=== PATIENT | female | born 1995 | race Caucasian/White ===

== ENCOUNTER 2016-05-10 18:05 | Emergency (ER) | payer SELFPAY ==
[~2016-05-10] VITALS: Ht 157.5 cm; Wt 54.0 kg
[2016-05-10 18:41] LABS: KETONES,URINE 15 (NEGATIVE); LEUKOCYTE ESTERASE ,URINE Small (NEGATIVE)
[2016-05-10 18:42] LABS: PREGNANCY TEST URINE QUAL NEGATIVE (NEGATIVE)
[2016-05-10 18:43] LABS: ADD UA MICROSCOPIC YES
[2016-05-10 18:58] LABS: ADD URINE CULTURE YES
[2016-05-10] MEDS ORDERED: CEPHALEXIN MONOHYDRATE 500 MG CAPSULE PO ONE ×2 (19:14→19:30)
[2016-05-10 19:26] VITALS: BP 104/66
== END 2016-05-10 19:27 | disposition home or self-care (01) ==
LOC: ER 18:06
DX: N39.0 Urinary tract infection, site not specified (principal)
CPT/HCPCS: 81001; 84703; 87086; 99284; A4606; Z7610; 81000-TC; 87186-TC